=== PATIENT | male | born 1995 | race Caucasian/White ===

== ENCOUNTER 2023-01-27 12:54 | Emergency (ER) | payer MEDICAID, SELFPAY ==
[2023-01-27 12:56] VITALS: BP 119/94; PULSE 74; RESP 13; TEMP 37.1; O2SAT 98; BMI 27.1
--- NOTE | 2023-01-27 13:05 | EDS_ITS ---
HPI History of Present Illness Chief Complaint: Syncope Detail of Chief Complaint: Single episode while on the commode Informant: patient Onset/Context/Timing Onset: Hours (Less than 1 hour prior to presentation) Context: Sudden Onset Timing: Intermittent Quality: Tunnel vision, pallor, diaphoresis, nausea Location: Commode Current Severity: Gone Maximum Severity: Severe Worsened by: Vasovagal response Relieved by: Not applicable Associated Symptoms Associated Symptoms: Comment was made that he had tremors. He was not postictal Narrative Narrative: Patient is a 27-year-old male on no medication with no medical problems who presents after syncopal episode. He was on the commode. He had symptoms consistent with vasovagal episode. He denies headache, he denies blurred vision, double vision or loss of vision presently. He did have ocular symptoms at the time of the event. He denied chest discomfort or shortness of breath. He denies history of VTE. He has no risk factors for VTE. He denies abdominal pain. He denies black or maroon-colored stool. He presently denies paresthesia, anesthesia motors. Prior to the single episode he complained of cramping in his hands and discomfort going up his extremities. Prior similar symptoms: No Recent Illness/Hospitalization: [facility] Medical History Anxiety Heart murmur Home Medications No Known/Unobtainable [No Known Home Medications] 06/18/17 [History Last Taken Unknown] Allergy/AdvReac Type Severity Reaction Status Date / Time No Known Allergies Allergy Verified 06/18/17 15:23 Social History (Updated 01/27/23 @ 13:[address] Alvaro Madden MD) household members: family Smoking Status: Never smoker alcohol intake: current alcohol intake frequency: holidays/special occasions only substance use type: does not use ROS ROS ED Constitutional Constitutional ED: Denies chills, fever(s), subjective, sweats or weight loss Eyes Eyes: Reports change in vision bilateral; Denies blurry vision or diplopia ENT ENT ED: Denies ear pain, rhinorrhea or sore throat Cardiovascular Cardiovascular: Denies chest pain, palpitations or racing heartbeat Respiratory/Chest Respiratory/Chest: Denies cough, dyspnea or dyspnea on exertion Gastrointestinal Gastrointestinal: Reports nausea; Denies abdominal pain, melena or vomiting Genitourinary Genitourinary ED: Denies hematuria Musculoskeletal Musculoskeletal: Denies arthralgias, back pain, myalgias or neck pain Integumentary Denies rash Neurologic Neurologic: Reports paresthesias; Denies headache(s) or weakness Psychiatric Psychiatric: Reports anxiety Endocrine Endocrinology: Denies cold intolerance or heat intolerance Hematologic/Lymphatic Hematologic/Lymphatic: Reports systems reviewed and no addt'l complaints, except as documented EXAM Physical Exam Const Vital Signs: 01/27/23 12:56 Temperature 98.7 F Temperature Source Oral Pulse Rate 74 Respiratory Rate 13 Blood Pressure 119/94 H Blood Pressure Mean 102 Pulse Ox 98 Oxygen Delivery Method Room Air Positive well nourished and well developed General Appearance ED: well developed and NAD; Negative for cyanotic, diaphoretic or pallor HEENT Reports moist mucous membranes HEENT Narrative: Head is atraumatic normocephalic. There is no clinical findings of basilar skull fracture. No septal deviation hematoma. No dental trauma. Eyes PERRL and EOMs intact bilaterally Eyes Narrative: There is no nystagmus. General Eye ED: Negative for pale conjunctiva or scleral icterus Neck no lymphadenopathy, supple and no JVD Resp normal respiratory effort and clear to auscultation bilaterally Cardio regular rate, regular rhythm, S1 normal heart sound, S2 normal heart sound and no murmurs GI normal to inspection, nondistended, normoactive bowel sounds, non-tender, non- distended and no masses; Negative for hepatosplenomegaly Palpation: soft Extremity normal to inspection General Extremety ED: Negative for edema or tenderness General Extremity: Negative for edema Neuro oriented x3, CN's II-XII intact bilaterally and no sensory deficits noted Sensorium / Orientation: alert Motor Exam: strength 5/5 throughout Psych mental status grossly normal Skin no rashes or lesions noted, no wounds and skin turgor normal General Skin Exam: elasticity normal; Negative for jaundice or pallor MDM MDM Rhythm Strip Rhythm Strip: Sinus Rhythm (Narrow complex sinus rhythm without ectopy.) Rate: 86 Ectopy: None Treatment and Re-Evaluation :: Patient and his mother were informed that patient had a vasovagal episode. Since there is no postictal state and this occurred while he was on the commode there is no indication for laboratory studies or twelve-lead EKG. This is never occurred before. Discharge Plan Triage Chief Complaint: Syncope ED Provider: Alvaro Madden Dx/Rx/DC Orders Clinical Impression: Syncope, vasovagal Instructions: ED Fainting, Vagal Reaction Prescriptions: No Action No Known Home Medications Primary Care Provider: Aubrey Mireles Referrals: Aubrey Mireles DO [Primary Care Provider] - As Needed Disposition Disposition: Home, Self Care
== END 2023-01-27 13:18 | disposition home or self-care (01) ==
PROVIDERS: Emergency Provider Emergency Medicine; PCP Student in an Organized Health Care Education/Training Program; Visit Provider Emergency Medicine
DX: R55 Syncope and collapse (principal)
CPT/HCPCS: 99283